=== PATIENT | male | born 1955 | race Caucasian/White ===

== ENCOUNTER 2016-05-17 07:15 | Day surgery (SDC) | payer BC, SELFPAY ==
[~2016-05-17] VITALS: Ht 162.6 cm; Wt 64.9 kg
[~2016-05-17 07:15] MED LIST: COLACE100 MG PO; DULOXETINE HCL30 MG PO; LASIX20 M1 PO; NEURONTIN300 MG PO; OXYCODON-ACETA1 EAC1 PO; PRINIVIL10 MG PO; RISPERDAL0.5 MG PO; SYMBICORT 80-10.2 GM IH; VALIUM5 MG PO; VENTOLIN HFA8 GM IH
--- NOTE | 2016-05-19 08:29 | OR ---
ADMIT: 05/17/2016 RM/LOC: [facility] MR#: [id number] [facility]#: [id number] [address] [facility] [address] [place] [id number] [facility] [address] [place] [id number] Operative/Delivery Room Report SEX: M AGE: 61 : 1955 SURGERY DATE: 05/17/2016 SURGEON: Andrei Barajas MD PREOPERATIVE DIAGNOSES: 1. Nausea and vomiting. 2. Rectal bleeding. POSTOPERATIVE DIAGNOSES: 1. Gastritis. 2. Sigmoid diverticulosis. PROCEDURES: 1. Esophagogastroduodenoscopy with biopsy. 2. Complete colonoscopy. ANESTHESIA: IV general. DESCRIPTION OF PROCEDURE: The patient was taken to the endoscopy suite and placed left side down on his hospital cart. A bite block was placed and IV sedation was established. The upper endoscope was advanced through the oropharynx into the esophagus without difficulty. The scope was pushed under visualization of the stomach. Air was used to insufflate the stomach. The pylorus was intubated. The first and second portion of the duodenum were examined and appeared normal. Duodenal bulb biopsies were obtained to evaluate for Helicobacter or celiac findings. The scope was withdrawn to the stomach. In the antrum, there was moderate hyperemia without ulceration. Biopsies were obtained. On retroflexion of the scope, the gastric body, fundus, and cardia appeared normal. The scope was drawn to the gastroesophageal junction. The Z-line appeared normal as did the remainder of the esophageal mucosa. Next, a rectal exam was performed, there were no palpable abnormalities. The flexible colonoscope was advanced under direct visualization through the entire colon to the level of the cecum. The cecum was identified by its anatomic landmarks and the ileocecal valve. The prep was excellent. Care was taken upon withdrawal of the scope to examine the mucosa of the colon. The cecum, ascending colon, transverse colon, and descending colon were normal. The sigmoid colon had mild diverticular change without active inflammatory change. The scope was withdrawn to the rectum and retroflexed and this was normal on inspection. Air was suctioned. The patient tolerated the procedure well and transferred to the recovery area in stable condition. Andrei Barajas MD/ eloina JOB #: [id number] CC: Andrei Barajas MD, Attending Physician ADMIT: 05/17/2016 RM/LOC: [facility] MR#: [id number] [address] [address] LEANNA AMAYA [address] [place] [address] Operative/Delivery Room Report SEX: M AGE: 61 : 1955 Zan Seals MD, Family Physician
== END 2016-05-17 12:40 | disposition home or self-care (01) ==
LOC: SSS 07:15
PROC: 0DB98ZX Excision of Duodenum, Via Natural or Artificial Opening Endoscopic, Diagnostic (ICD-10-PCS; principal; 2016-05-17)
PROC: 0DB68ZX Excision of Stomach, Via Natural or Artificial Opening Endoscopic, Diagnostic (ICD-10-PCS; principal; 2016-05-17)
PROC: 0DJD8ZZ Inspection of Lower Intestinal Tract, Via Natural or Artificial Opening Endoscopic (ICD-10-PCS; principal; 2016-05-17)
DX: K57.30 Diverticulosis of large intestine without perforation or abscess without bleeding (principal); I25.10 Atherosclerotic heart disease of native coronary artery without angina pectoris; Z86.718 Personal history of other venous thrombosis and embolism; Z79.899 Other long term (current) drug therapy; Z95.1 Presence of aortocoronary bypass graft; Z88.8 Allergy status to other drugs, medicaments and biological substances

== ENCOUNTER → 2016-06-07 | Outpatient (CLI) | payer BC, SELFPAY | END | disposition home or self-care (01) | LOC: RAD.S 09:30 | DX: R10.13 Epigastric pain (principal) ==

== ENCOUNTER 2016-06-23 07:31 | Day surgery (SDC) | payer BC, SELFPAY ==
[~2016-06-23] VITALS: Ht 162.6 cm
--- NOTE | 2016-06-25 08:26 | OR ---
ADMIT: 06/23/2016 RM/LOC: [facility] MR#: [id number] [address] [address] LEANNA AMAYA [address] [place] [address] Operative/Delivery Room Report SEX: M AGE: 61 : 1955 SURGERY DATE: 06/23/2016 SURGEON: Yohannes Alvarez MD BALL SORTER: None. PREPROCEDURE DIAGNOSES: 1. Lumbar disc degeneration. 2. Lumbosacral neuritis. POSTPROCEDURE DIAGNOSES: 1. Lumbar disc degeneration. 2. Lumbosacral neuritis. PROCEDURE PERFORMED: L5-S1 interlaminar epidural steroid injection. INDICATIONS FOR PROCEDURE: The patient is pleasant male with history of chronic low back pain secondary to above mentioned diagnoses, comes here for planned lumbar epidural steroid injection. ANESTHESIA: Local without sedation. ESTIMATED BLOOD LOSS: Zero. COMPLICATIONS: None immediately evident. DESCRIPTION OF PROCEDURE: After the patient was seen in the preoperative area, vitals signs were taken. Prior to the procedure, the risks, benefits, and alternative therapies were discussed at length. Patient consent was obtained and updated. The patient was taken to the fluoroscopy suite and placed on the fluoroscopy table in the prone position. Pressure points were padded to comfort, monitors applied, and a timeout performed. Fluoroscopy was brought in. The patient was sterilely prepped and draped in the usual manner with ChloraPrep solution, and 1% lidocaine was used to anesthetize the appropriate needle entry site. Utilizing a midline approach, ADMIT: 06/23/2016 RM/LOC: [facility] MR#: [id number] [address] [address] [facility]ON [facility]MA[facility] [address] [place] [address] Operative/Delivery Room Report SEX: M AGE: 61 : 1955 continuous loss of resistance technique with preservative-free normal saline and intermittent fluoroscopic guidance, the posterior epidural space was easily entered. Once the epidural space had been entered through L5-S1. The patient was injected with 2 mL of Isovue-300 and outlining of the posterior epidural space was observed with no evidence of vascular uptake and intrathecal migration. Next, a solution consisting of 10 mL of preservative- free normal saline and 80 mg of Depo-Medrol was injected. The needle was withdrawn. The patient was escorted back to the preoperative area and observed for a period of time. PLAN: Discharge instructions were given, followup scheduled. 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 Yohannes Alvarez MD/ eloina JOB #: [id number] CC: Yohannes Alvarez MD, Attending Physician Zan Seals MD, Family Physician
== END 2016-06-23 10:54 | disposition home or self-care (01) ==
LOC: SSS 07:31
PROC: B01BZZZ Fluoroscopy of Spinal Cord (ICD-10-PCS; principal; 2016-06-23)
PROC: 3E0R33Z Introduction of Anti-inflammatory into Spinal Canal, Percutaneous Approach (ICD-10-PCS; principal; 2016-06-23)
DX: G89.29 Other chronic pain (principal); M51.17 Intervertebral disc disorders with radiculopathy, lumbosacral region; M48.06 Spinal stenosis, lumbar region; I10 Essential (primary) hypertension; I25.10 Atherosclerotic heart disease of native coronary artery without angina pectoris; J44.9 Chronic obstructive pulmonary disease, unspecified; I73.9 Peripheral vascular disease, unspecified; F32.9 Major depressive disorder, single episode, unspecified; G47.00 Insomnia, unspecified; E78.5 Hyperlipidemia, unspecified; Z88.8 Allergy status to other drugs, medicaments and biological substances; Z87.891 Personal history of nicotine dependence; Z95.1 Presence of aortocoronary bypass graft; Z79.899 Other long term (current) drug therapy; Z98.890 Other specified postprocedural states

== ENCOUNTER 2016-07-08 11:51 | Emergency (ER) | payer BC, SELFPAY ==
--- NOTE | 2016-07-13 16:07 | ER ---
ADMIT: 07/08/2016 RM/LOC: ER [facility] MR#: [id number] [facility]#: [id number] [address] [facility] [address] [place], [place] [address] LEANNA AMAYA [address] [address] Emergency Room Report SEX: M AGE: 61 : 1955 DATE: 07/08/2016 HISTORY OF PRESENT ILLNESS: The patient is a 61-year-old, male, who presents to the emergency room with abdominal pain, vomiting x1 since yesterday. He feels weak. He denies any loose stool. He ate some supper last night and vomited yesterday. He says that the pain in the abdomen comes and goes. There is some discrepancy on the report that he has with the pain. He says at one point, the pain shoots down his anterior leg, but then at other times, the pain is from the epigastrium up to the esophagus. His vitals are within normal limits. ALLERGIES: HE IS ALLERGIC TO ASPIRIN. MEDICATIONS: He takes morphine and blood thinner, which he does not remember what it is. PAST MEDICAL HISTORY: He had heart disease, bypass quadruple in 2012, chronic back pain, herniated disk with back surgery. He smokes 3-4 cigarettes a day. We did do labs on him and check him out. PHYSICAL EXAMINATION: GENERAL: He is moderately anxious. Tenderness in the hypogastric area down to the right leg, but it does not radiate down to the leg or the anterior aspect of the leg. NEUROLOGIC: Oriented x4. Mood and affect are appropriate. LABORATORY DATA: A KUB shows stool. CT done to rule out appendicitis because his abdomen was somewhat tender in the right lower and pubic area. He has a renal cyst, probable mild, sigmoid diverticulitis. His CBC within normal limits with platelets of 154, CRP 1.5. Helicobacter pylori nonreactive. UA; ketones 1+. He did get a GI cocktail which he said did help him. CLINICAL IMPRESSION: ADMIT: 07/08/2016 RM/LOC: ER [facility] MR#: [id number] [address] [address] LEANNA AMAYA [address] [place] [address] Emergency Room Report SEX: M AGE: 61 : 1955 1. Diverticulosis with mild sigmoid diverticulitis. 2. Abdominal pain, right lower quadrant. 3. Constipation. DISPOSITION: Advised to use mag citrate. Carafate given as he said the GI cocktail was held, so he has a prescription for Carafate daily. Diverticular disease diet, no seeds and so on, and use MiraLax daily to keep colon clean. Follow up with Dr. Woodson within a week. He says that he has had studies, upper, lower GI, HIDA scan, multiple studies to find out what is in his abdomen and he has not been able to get an answer from anyone on it yet. So, at this point, we treated him conservatively and advised very strongly to follow up with Dr. Woodson. HÉCTOR Sandhu / Tod Reyes MD / eloina JOB #: [id number] CC: Tod Reyes MD, Attending Physician Zan Seals MD, Family Physician
== END 2016-07-08 17:05 | disposition home or self-care (01) ==
LOC: ER 11:51
DX: K57.32 Diverticulitis of large intestine without perforation or abscess without bleeding (principal); K59.00 Constipation, unspecified; F17.210 Nicotine dependence, cigarettes, uncomplicated; Z88.8 Allergy status to other drugs, medicaments and biological substances; Z79.899 Other long term (current) drug therapy

== ENCOUNTER 2016-08-31 07:41 | Emergency (ER) | payer BC, SELFPAY ==
--- NOTE | 2016-09-05 08:56 | ER ---
ADMIT: 08/31/2016 RM/LOC: ER [facility] MR#: [id number] [id number] [place], [place] [address] LEANNA AMAYA [address] [facility] [address] [place] [address] Emergency Room Report SEX: M AGE: 61 : 1955 DATE: 08/31/2016 TIME: 0741 hours. Please refer to my T-sheet for complete H and P. Briefly, the patient is a 61-year-old, comes in with cough and shortness of breath. He ran out of his inhaler last night. He smokes about a half a pack a day. PHYSICAL EXAMINATION: VITAL SIGNS: Here are stable. Sats are 96%. HEENT: Grossly normal. LUNGS: Coarse with just decreased air movement and expiratory wheezes. HEART: Regular. ABDOMEN: Soft. EMERGENCY DEPARTMENT COURSE: EKG was sinus rhythm, 83. No changes. Chest x- ray revealed COPD, no acute infiltrate. I gave him a DuoNeb and Decadron 10 IM, he was much improved. ASSESSMENT: 1. Chronic obstructive pulmonary disease with exacerbation. 2. Nicotine abuse. PLAN: Stop smoking. Return if worse. Albuterol q.4 hours. Prednisone 20 b.i.d. for 5 days. Jareth Freitas MD/ eloina JOB #: [id number] CC: Jareth Freitas MD, Attending Physician Florin Woodson MD, Family Physician
== END 2016-08-31 08:49 | disposition home or self-care (01) ==
LOC: ER 07:41
DX: J44.1 Chronic obstructive pulmonary disease with (acute) exacerbation (principal); F17.210 Nicotine dependence, cigarettes, uncomplicated; I25.10 Atherosclerotic heart disease of native coronary artery without angina pectoris; F41.9 Anxiety disorder, unspecified; Z95.1 Presence of aortocoronary bypass graft; Z98.890 Other specified postprocedural states; Z88.6 Allergy status to analgesic agent; Z79.899 Other long term (current) drug therapy